=== PATIENT | female | born 1975 | race African-American/Black ===

== ENCOUNTER 2018-02-26 12:53 | Emergency (ER) | payer OTHER ==
--- NOTE | 2018-02-26 15:38 | RAD REPORT ---
EXAM DESCRIPTION: RAD - Elbow Right 3 View - 02/26/2018 2:07 pm CLINICAL HISTORY: Right elbow pain. FINDINGS: The examination is limited as the patient was unable to extend the elbow. The bones are osteoporotic. A joint effusion is present. Mild cortical regularity involves the radial head. This is equivocal for a fracture and should be correlated clinically.
--- NOTE | 2018-02-26 15:54 | EDPHYS ---
Physician Documentation [facility] Name: Tova Jensen Age: 42 yrs Sex: Female : 1975 Arrival Date: 02/26/2018 Time: 12:56 Bed 12 Private MD: Laron Brito B ED Physician Tyrel Donato HPI: 02/26 15:47 This 42 yrs old Black Female presents to ER via Ambulatory with complaints of Arm Pain. gs 15:47 The patient or guardian complains of injury. The complaints affect the right elbow. gs Onset: The symptoms/episode began/occurred 2 day(s) ago. Unable to obtain HPI due to patient's speech is incomprehensible, patient's inability to understand questions. 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 - Social history:: Smoking status: Patient/guardian denies using tobacco. - Ebola Screening: : No symptoms or risks identified at this time. ROS: 15:47 Unable to obtain ROS due to patient's inability to understand questions. gs Exam: 15:47 Eyes: Pupils equal round and reactive to light, extra-ocular motions intact. Lids and gs lashes normal. Conjunctiva and sclera are non-icteric and not injected. Cornea within normal limits. Periorbital areas with no swelling, redness, or edema. ENT: Nares patent. No nasal discharge, no septal abnormalities noted. Tympanic membranes are normal and external auditory canals are clear. Oropharynx with no redness, swelling, or masses, exudates, or evidence of obstruction, uvula midline. Mucous membranes moist. Neck: Trachea midline, no thyromegaly or masses palpated, and no cervical lymphadenopathy. Supple, full range of motion without nuchal rigidity, or vertebral point tenderness. No Meningismus. Cardiovascular: Regular rate and rhythm with a normal S1 and S2. No gallops, murmurs, or rubs. Normal PMI, no JVD. No pulse deficits. Respiratory: Lungs have equal breath sounds bilaterally, clear to auscultation and percussion. No rales, rhonchi or wheezes noted. No increased work of breathing, no retractions or nasal flaring. Abdomen/GI: Soft, non-tender, with normal bowel sounds. No distension or tympany. No guarding or rebound. No evidence of tenderness throughout. Back: No spinal tenderness. No costovertebral tenderness. Full range of motion. Skin: Warm, dry with normal turgor. Normal color with no rashes, no lesions, and no evidence of cellulitis. 15:47 Constitutional: The patient appears alert, awake. 15:47 Musculoskeletal/extremity: ROM: limited active range of motion, limited passive range of motion, limited active range of motion due to pain, limited passive range of motion due to pain, Joints: the right elbow displays swelling, tenderness. 15:47 Neuro: Exam negative for acute changes. Vital Signs: 13:11 BP 139 / 91; Pulse 105; Resp 18 S; Temp 97.8(TE); Pulse Ox 99% on R/A; Weight 104.33 kg aa5 (R); Height 5 ft. 0 in. (152.40 cm) (R); 13:11 Body Mass Index 44.92 (104.33 kg, 152.40 cm) aa5 Procedures: 15:47 Splinting: Splint applied to right elbow using Orthoglass splint, applied by tech. Examined by me, post splint application: neurovascular intact, 2+ distal pulses palpable, brisk capillary refill noted, Patient tolerated well. MDM: 13:21 Patient medically screened. gs 15:47 Differential diagnosis: dislocation, closed fracture, contusion. Data reviewed: vital gs signs, nurses notes. Response to treatment: the patient's symptoms have markedly improved after treatment, and as a result, I will discharge patient. 02/26 13:26 Order name: Elbow Right 3 View XRAY; Complete Time: 15:47 gs 02/26 15:47 Order name: Posterior Elbow Splint; Complete Time: 16:20 gs Administered Medications: No medications were administered Disposition: 02/26/18 15:53 Discharged to Home. Impression: Displaced fracture of head of right radius. - Condition is Stable. - Discharge Instructions: Elbow Fracture, Simple. - Medication Reconciliation Form, Thank You Letter, Antibiotic Education, Prescription Opioid Use form. - Follow up: Edinson Farah MD; When: 2 - 3 days; Reason: Re-evaluation by your physician. Signatures: Dispatcher [employer] Anne Alejandro RN RN aa5 Tyrel Donato MD MD gs Flor Brownlee RN RN kr2 Corrections: (The following items were deleted from the chart) 16:22 15:53 02/26/2018 15:53 Discharged to Home. Impression: Displaced fracture of head of kr2 right radius. Condition is Stable. Forms are Medication Reconciliation Form, Thank You Letter, Antibiotic Education, Prescription Opioid Use. Follow up: Edinson Farah; When: 2 - 3 days; Reason: Re-evaluation by your physician. gs
--- NOTE | 2018-02-26 15:54 | ER ---
Nurse's Notes [facility] Name: Tova Jensen Age: 42 yrs Sex: Female : 1975 Arrival Date: 02/26/2018 Time: 12:56 Bed 12 Private MD: Laron Brito B Diagnosis: Displaced fracture of head of right radius Presentation: 02/26 13:09 Presenting complaint: Pt's caregiver states "she started complaining about her right aa5 arm hurting since yesterday". Pt's caregiver states "I don't know if she fell because I had surgery yesterday so I was sleeping all day yesterday". Transition of care: patient was not received from another setting of care. Onset of symptoms was February 2018. Risk Assessment: Do you want to hurt yourself or someone else? Patient reports no desire to harm self or others. Initial Sepsis Screen: Does the patient meet any 2 criteria? No. Patient's initial sepsis screen is negative. Does the patient have a suspected source of infection? No. Patient's initial sepsis screen is negative. Care prior to arrival: None. 13:09 Method Of Arrival: Ambulatory aa5 13:09 Acuity: DARRELL 4 aa5 Triage Assessment: 13:35 General: Appears in no apparent distress. comfortable, well groomed, well developed, kr2 well nourished, Behavior is calm, cooperative. Pain: Complains of pain in right arm Unable to use pain scale. Does not appear to understand pain scale. Patient appears to be guarding, right arm, not wanting to move it. 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 - Social history:: Smoking status: Patient/guardian denies using tobacco. - Ebola Screening: : No symptoms or risks identified at this time. Screenin:34 Abuse screen: Denies threats or abuse. Denies injuries from another. Nutritional kr2 screening: No deficits noted. Tuberculosis screening: No symptoms or risk factors identified. Fall Risk None identified. Assessment: 13:37 General: Appears in no apparent distress. comfortable, well groomed, well developed, kr2 well nourished, Behavior is calm, cooperative, Patient has Down's Syndrome, unable to explain what happened or describe pain. Pain: Complains of pain in right arm Unable to use pain scale. Does not appear to understand pain scale. Neuro: Level of Consciousness is awake, alert, obeys commands, Oriented to person, place, situation. Cardiovascular: Capillary refill < 3 seconds in bilateral fingers Patient's skin is warm and dry. Respiratory: Airway is patent Respiratory effort is even, unlabored, Respiratory pattern is regular, symmetrical. Derm: Skin is intact, is healthy with good turgor, Skin is pink, warm \\T\\ dry. Musculoskeletal: Circulation, motion, and sensation intact. Patient does not want to move right arm, states it "hurts.". 14:30 Reassessment: Patient appears in no apparent distress at this time. Patient and/or kr2 family updated on plan of care and expected duration. Pain level reassessed. Patient is alert, oriented x 3, equal unlabored respirations, skin warm/dry/pink. 15:30 Reassessment: Patient appears in no apparent distress at this time. Patient and/or kr2 family updated on plan of care and expected duration. Pain level reassessed. Patient is alert, oriented x 3, equal unlabored respirations, skin warm/dry/pink. 16:20 Reassessment: Patient appears in no apparent distress at this time. Patient and/or kr2 family updated on plan of care and expected duration. Pain level reassessed. Patient is alert, oriented x 3, equal unlabored respirations, skin warm/dry/pink. Splint and sling in place as ordered. Pt tolerated well. Vital Signs: 13:11 BP 139 / 91; Pulse 105; Resp 18 S; Temp 97.8(TE); Pulse Ox 99% on R/A; Weight 104.33 kg aa5 (R); Height 5 ft. 0 in. (152.40 cm) (R); 13:11 Body Mass Index 44.92 (104.33 kg, 152.40 cm) aa5 ED Course: 12:56 Patient arrived in ED. mr 12:57 Laron Brito MD is Private Physician. mr 13:11 Triage completed. aa5 13:11 Arm band placed on. aa5 13:18 Tyrel Donato MD is Attending Physician. 13:23 Flor Brownlee, RN is Primary Nurse. kr2 13:37 Patient has correct armband on for positive identification. Call light in reach. Adult kr2 w/ patient. Door closed. Warm blanket given. Verbal reassurance given. 14:07 Elbow Right 3 View XRAY In Process Unspecified. EDAZ 15:49 Edinson Farah MD is Referral Physician. 16:17 Orthoglass splint: POSTERIOR ELBOW WITH SLING Sling applied to right arm. mh5 16:21 No provider procedures requiring assistance completed. Patient did not have IV access kr2 during this emergency room visit. Administered Medications: No medications were administered Outcome: 15:53 Discharge ordered by . 16:21 Discharged to home ambulatory. kr2 16:21 Condition: good 16:21 Discharge instructions given to family, Instructed on discharge instructions, follow up and referral plans. splint care Demonstrated understanding of instructions, follow-up care, splint care. 16:22 Patient left the ED. kr2 Signatures: Dispatcher [employer] [facility] Anu Ruano Audri, RN RN Anu Dias [facility] Tyrel Donato MD MD Flor Brownlee, RN RN kr2
[2018-02-26 18:24] VITALS: BP 139/91; TEMP 97.8; O2SAT 99
== END 2018-02-26 16:22 | disposition home or self-care (01) ==
LOC: ER 12:53
PROC: 2W38X1Z Immobilization of Right Upper Extremity using Splint (ICD-10-PCS; principal; 2018-02-26)
DX: S52.121A Displaced fracture of head of right radius, initial encounter for closed fracture (principal)
CPT/HCPCS: 99283

== ENCOUNTER 2018-11-17 14:13 | Emergency (ER) | payer OTHER ==
[2018-11-17] MEDS ORDERED: NA CHLORIDE 0.9% 0 ML ONE (15:27)
[2018-11-17] MEDS ORDERED: DIPHENHYDRAMINE 25 MG TAB/CAP ONE (15:49)
--- NOTE | 2018-11-17 15:53 | EDPHYS ---
Physician Documentation [facility] Name: Tova Jensen Age: 43 yrs Sex: Female : 1975 Arrival Date: 11/17/2018 Time: 14:16 Bed IW4 Private MD: ED Physician Umer Stuart HPI: 11/17 15:48 This 43 yrs old Black Female presents to ER via Ambulatory with complaints of Eye kb Swelling. 15:48 The patient is experiencing matting or discharge, redness, The patient sustained kb Unknown. to the left eye, caused by an unknown mechanism. Onset: The symptoms/episode began/occurred this morning. Duration: the symptoms are continuous. Aggravated by nothing. Alleviated by nothing. Associated signs and symptoms: Pertinent positives: None. Severity of symptoms: At their worst the symptoms were mild in the emergency department the symptoms are unchanged. The patient has not experienced similar symptoms in the past. The patient has not recently seen a physician. 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 - Social history:: Smoking status: Patient/guardian denies using tobacco. - Ebola Screening: : Patient negative for fever greater than or equal to 101.5 degrees Fahrenheit, and additional compatible Ebola Virus Disease symptoms Patient denies exposure to infectious person Patient denies travel to an Ebola-affected area in the 21 days before illness onset No symptoms or risks identified at this time. ROS: 15:46 Constitutional: Negative for fever, chills, and weight loss, ENT: Negative for injury, kb pain, and discharge, Neck: Negative for injury, pain, and swelling, Cardiovascular: Negative for chest pain, palpitations, and edema, Respiratory: Negative for shortness of breath, cough, wheezing, and pleuritic chest pain, Abdomen/GI: Negative for abdominal pain, nausea, vomiting, diarrhea, and constipation, MS/Extremity: Negative for injury and deformity, Neuro: Negative for headache, weakness, numbness, tingling, and seizure. 15:46 Eyes: Positive for discharge, redness, swelling, of the left upper eyelid and left lower eyelid. Exam: 15:46 Constitutional: This is a well developed, well nourished patient who is awake, alert, kb and in no acute distress. Head/Face: Normocephalic, atraumatic. ENT: Nares patent. No nasal discharge, no septal abnormalities noted. Tympanic membranes are normal and external auditory canals are clear. Oropharynx with no redness, swelling, or masses, exudates, or evidence of obstruction, uvula midline. Mucous membranes moist. Neck: Trachea midline, no thyromegaly or masses palpated, and no cervical lymphadenopathy. Supple, full range of motion without nuchal rigidity, or vertebral point tenderness. No Meningismus. Chest/axilla: Normal chest wall appearance and motion. Nontender with no deformity. No lesions are appreciated. Cardiovascular: Regular rate and rhythm with a normal S1 and S2. No gallops, murmurs, or rubs. Normal PMI, no JVD. No pulse deficits. Respiratory: Lungs have equal breath sounds bilaterally, clear to auscultation and percussion. No rales, rhonchi or wheezes noted. No increased work of breathing, no retractions or nasal flaring. Abdomen/GI: Soft, non-tender, with normal bowel sounds. No distension or tympany. No guarding or rebound. No evidence of tenderness throughout. Skin: Warm, dry with normal turgor. Normal color with no rashes, no lesions, and no evidence of cellulitis. MS/ Extremity: Pulses equal, no cyanosis. Neurovascular intact. Full, normal range of motion. Neuro: Awake and alert, GCS 15, oriented to person, place, time, and situation. Cranial nerves II-XII grossly intact. Motor strength 5/5 in all extremities. Sensory grossly intact. Cerebellar exam normal. Normal gait. 15:46 Eyes: Periorbital structures: erythema, that is mild, on the left upper eyelid and left lower eyelid, swelling, that is mild, on the left upper eyelid and left lower eyelid, Pupils: equal, round, and reactive to light and accomodation, Conjunctiva: injected, in the left eye. Vital Signs: 14:27 Pulse 90; Resp 19; Temp 97.8; Pulse Ox 100% on R/A; Pain 4/10; sg 14:30 BP 114 / 77; sg 16:08 BP 122 / 80; Pulse 88; Resp 18; Pulse Ox 100% on R/A; rv MDM: 14:47 Patient medically screened. kb 15:46 Data reviewed: vital signs, nurses notes. Data interpreted: Pulse oximetry: on room air kb is 100 %. Interpretation: normal. Counseling: I had a detailed discussion with the patient and/or guardian regarding: the historical points, exam findings, and any diagnostic results supporting the discharge/admit diagnosis, the need for outpatient follow up, a family practitioner, to return to the emergency department if symptoms worsen or persist or if there are any questions or concerns that arise at home. Administered Medications: 15: Drug: Benadryl 25 mg Route: PO; rv 16:08 Follow up: Response: No adverse reaction rv Disposition: 11/18 07:54 Co-signature as Attending Physician, Umer Stuart MD I agree with the assessment and [facility] plan of care. Disposition: 11/17/18 15:52 Discharged to Home. Impression: Conjunctivitis. - Condition is Stable. - Discharge Instructions: Bacterial Conjunctivitis, [id number]. - Prescriptions for Vigamox 0.5 % Ophthalmic Drops - instill 1 drop by OPHTHALMIC route every 8 hours for 7 days; 5 milliliter. - Medication Reconciliation Form, Thank You Letter, Antibiotic Education, Prescription Opioid Use form. - Follow up: Emergency Department; When: As needed; Reason: Worsening of condition. Follow up: Private Physician; When: 2 - 3 days; Reason: Recheck today's complaints, Continuance of care, Re-evaluation by your physician. Signatures: Ivy López FNP-C FNP-Edinson Moses RN RN sg Anderson, Corey, MD MD cha Vicente, Ronaldo RN RN rv Corrections: (The following items were deleted from the chart) 11/17 16:11 15:52 11/17/2018 15:52 Discharged to Home. Impression: Conjunctivitis. Condition is rv Stable. Forms are Medication Reconciliation Form, Thank You Letter, Antibiotic Education, Prescription Opioid Use. Follow up: Emergency Department; When: As needed; Reason: Worsening of condition. Follow up: Private Physician; When: 2 - 3 days; Reason: Recheck today's complaints, Continuance of care, Re-evaluation by your physician. kb
--- NOTE | 2018-11-17 15:53 | ER ---
Nurse's Notes [facility] Name: Tova Jensen Age: 43 yrs Sex: Female : 1975 Arrival Date: 11/17/2018 Time: 14:16 Bed IW4 Private MD: Diagnosis: Conjunctivitis Presentation: 11/17 14:27 Presenting complaint: Mother states: Left eye swelling and redness and itchiness with sg drainage that started this morning, was not a problem yesterday or lastnight. Transition of care: patient was not received from another setting of care. Onset of symptoms was November 17, 2018. Risk Assessment: Do you want to hurt yourself or someone else? Patient reports no desire to harm self or others. Initial Sepsis Screen: Does the patient meet any 2 criteria? No. Patient's initial sepsis screen is negative. Does the patient have a suspected source of infection? No. Patient's initial sepsis screen is negative. Care prior to arrival: None. 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 - Social history:: Smoking status: Patient/guardian denies using tobacco. - Ebola Screening: : Patient negative for fever greater than or equal to 101.5 degrees Fahrenheit, and additional compatible Ebola Virus Disease symptoms Patient denies exposure to infectious person Patient denies travel to an Ebola-affected area in the 21 days before illness onset No symptoms or risks identified at this time. Screenin:07 Abuse screen: Denies threats or abuse. Denies injuries from another. Nutritional rv screening: No deficits noted. Tuberculosis screening: No symptoms or risk factors identified. Fall Risk None identified. Assessment: 15:05 General: Appears in no apparent distress. comfortable, Behavior is calm, cooperative. rv General: Behavior is inappropriate for age. Pain: Denies pain. Neuro: Level of Consciousness is awake, alert, obeys commands, Oriented to person, place, time. Cardiovascular: Cardiovascular: Capillary refill < 3 seconds. Respiratory: Airway is patent. GI: No signs and/or symptoms were reported involving the gastrointestinal system. : No signs and/or symptoms were reported regarding the genitourinary system. EENT: Eyes redness on left eye. Derm: Skin is intact. Musculoskeletal: No signs and/or symptoms reported regarding the musculoskeletal system. Vital Signs: 14:27 Pulse 90; Resp 19; Temp 97.8; Pulse Ox 100% on R/A; Pain 4/10; sg 14:30 BP 114 / 77; sg 16:08 BP 122 / 80; Pulse 88; Resp 18; Pulse Ox 100% on R/A; rv ED Course: 14:16 Patient arrived in ED. ds1 14:18 Arm band placed on. sg 14:28 Triage completed. sg 14:47 Ivy López FNP-C is [facility]. kb 14:47 Umer Stuart MD is Attending Physician. kb 15:07 Patient has correct armband on for positive identification. Call light in reach. Adult rv w/ patient. Cardiac monitoring not applicable on this patient. 16:08 No provider procedures requiring assistance completed. Patient did not have IV access rv during this emergency room visit. Administered Medications: 15:24 Drug: Benadryl 25 mg Route: PO; rv 16:08 Follow up: Response: No adverse reaction rv Outcome: 15:52 Discharge ordered by MD. kb 16:09 Discharged to home ambulatory. rv 16:09 Condition: good 16:09 Discharge instructions given to family, Instructed on discharge instructions, follow up and referral plans. medication usage, Demonstrated understanding of instructions, follow-up care, medications, Prescriptions given X 1. 16:11 Patient left the ED. rv Signatures: Ivy López FNP-C FNP-Ckb Gay, Steven RN OWEN Meghana Cornejo ds1 Danis Allred RN RN rv
[2018-11-17 16:26] VITALS: TEMP 97.8; O2SAT 100
[2018-11-17 16:28] VITALS: BP 122/80
== END 2018-11-17 16:11 | disposition home or self-care (01) ==
LOC: ER 14:13
DX: H10.9 Unspecified conjunctivitis (principal); Q90.9 Down syndrome, unspecified
CPT/HCPCS: 99283; J7030

== ENCOUNTER 2019-11-22 08:41 | Emergency (ER) | payer OTHER ==
--- OUTSIDE RECORDS SUMMARY | 2019-11-22 08:43 | XMS REPORT ---
:1975 [facility] Address [address] [place] [address] [address] [place] [address] Care Team Providers Name Role Phone Unavailable Unavailable Unavailable Problems This patient has no known problems. Allergies, Adverse Reactions, Alerts This patient has no known allergies or adverse reactions. Medications This patient has no known medications.
--- OUTSIDE RECORDS SUMMARY | 2019-11-22 08:45 | XMS REPORT | Summary of Care ---
:1975 Author Organization [facility] - Health Address [address] [place] [address] Care Team Providers Name Role Phone Pcp, Patient Does Not Have A Primary Care Provider Encounter Details Date Type Department Care Team Description 11/18/2019 Orders Only [facility] Doctor Unassigned, No [address] [facility] [place] [address] [address] [place] [address] Allergies No Known Allergiesdocumented as of this encounter (statuses as of 11/18/2019) Medications Medication Sig Dispensed Refills Start Date End Date Status Levothyroxine 112 mcg TAKE 1 TABLET BY 6 02/21/2019 Active capsule MOUTH EVERY MORNING ON AN EMPTY STOMACH venlafaxine XR 75 mg 24 TAKE 2 CAPSULES 0 03/07/2019 Active hr capsule BY MOUTH EVERY DAY risperiDONE 3 mg tablet Take 3 mg by 0 04/04/2019 Active mouth 2 (two) times daily. montelukast 10 mg Take 10 mg by 10 02/21/2019 Active tablet mouth daily. lithium carbonate CR TAKE 2 TABLETS BY 0 04/04/2019 Active 300 mg SR tablet MOUTH AT BEDTIME ergocalciferol, vitamin TAKE 1 CAPSULE BY 3 03/21/2019 Active d2, 50,000 unit capsule MOUTH EVERY 2 WEEKS donepezil 10 mg tablet Take 10 mg by 3 03/21/2019 Active mouth 2 (two) times daily. famotidine 20 mg tablet Take 20 mg by 0 Active mouth 2 (two) times daily. donepezil 5 mg tablet Take 5 mg by 0 Active mouth at bedtime. foLIC acid 1 mg tablet Take 1 mg by 0 Active mouth daily. docusate (DOC-Q-LACE) Take 100 mg by 0 Active 100 mg capsule mouth daily. levETIRAcetam 500 mg Take by mouth. 0 Active TbSu FLUoxetine 20 mg Take 20 mg by 0 Active capsule mouth daily. zolpidem 5 mg tablet Take 5 mg by 0 Active mouth at bedtime as needed for Insomnia. imipramine 25 mg tablet Take 25 mg by 0 Active mouth at bedtime. calcium Take 650 mg by 0 Active carbonate/vitamin D2 mouth daily. ([id number] ORAL) alendronate 70 mg Take 1 tablet by 12 tablet 0 10/16/2019 Active tabletIndications: mouth weekly. Osteoporosis, postmenopausal documented as of this encounter (statuses as of 11/18/2019) Active Problems Not on filedocumented as of this encounter (statuses as of 11/18/2019) Social History Tobacco Use Types Packs/Day Years Used Date Never Smoker Smokeless Tobacco: Never Used Alcohol Use Drinks/Week oz/Week Comments Never Alcohol Habits Answer Date Recorded How often do you have a drink containing alcohol? Never 04/16/2019 How many drinks containing alcohol do you have on a typical Not asked day when you are drinking? How often do you have six or more drinks on one occasion? Not asked Sex Assigned at Date Recorded Not on file Job Start Date Occupation Industry Not on file Not on file Not on file Travel History Travel Start Travel End No recent travel history available. documented as of this encounter Last Filed Vital Signs Not on filedocumented in this encounter Plan of Treatment Date Type Specialty Care Team Description 11/18/2019 Office Visit Endocrinology Diabetes & BishopAdam MD Arrived Metabolism 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 Medicare [place] 2 [id number] [place] [id number] [facility] MEDICAID OF xxxxxxxxx 2019-Presen [phone] [address] [place] t 0 [id number] [place] [address] documented as of this encounter
--- OUTSIDE RECORDS SUMMARY | 2019-11-22 08:45 | XMS REPORT | Summary of Care ---
:1975 Author Organization [facility] Address [address] [place] [address] Care Team Providers Name Role Phone Pcp, Patient Does Not Have A Primary Care Provider Reason for Visit Reason Comments LAB Encounter Details Date Type Department Care Team Description 11/18/2019 Power Plant Manager Visit [facility] Adam Bishop MD [address] [place] [address] Osteoporosis, postmenopausal; Professional Office 2, Adc Lab Vitamin D deficiency; Building Phlebotomy Primary hypothyroidism Lab Professional Office Building [address] [place] [address] , [address] [place] [address] Allergies No Known Allergiesdocumented as of this [...] by 0 Active carbonate/vitamin D2 mouth daily. ([id number] ORAL) alendronate 70 mg Take 1 tablet [...] Treatment Date Type Specialty Care Team Description 05/18/2020 Office Visit Endocrinology Diabetes & BishopAdam MD Metabolism [address] [place] [address] [phone] Health Maintenance Due Date Last Done Comments DTaP,Tdap,and Td Vaccines (1 - 1987 Tdap) PAP SMEAR 1997 Breast Cancer Screening 2016 (MAMMOGRAM) INFLUENZA VACCINE (#1) 2019 PNEUMOCOCCAL 0-64 YEARS COMBINED Aged Out No longer eligible based on SERIES patient's age to complete this topic documented as of this encounter Results Not on filedocumented in this encounter Visit Diagnoses Diagnosis Osteoporosis, postmenopausal Senile osteoporosis Vitamin D deficiency Unspecified vitamin D deficiency Primary hypothyroidism Unspecified hypothyroidism documented in this encounter Insurance Payer Benefit Plan / Subscriber ID Effective Dates Phone Address Type Group MEDICARE MEDICARE PART xxxxxxxxxxx 1996-Geovanni [phone] Medicare A & B nt [id number] [place] [address] [facility] MEDICAID OF xxxxxxxxx 2019-Mando [phone] [address] Medicaid [place] t 0 [id number] [place] [address] documented as of this encounter
--- OUTSIDE RECORDS SUMMARY | 2019-11-22 08:46 | XMS REPORT | Summary of Care ---
:1975 Author Organization [facility] Address [address] [place] [address] Care Team Providers Name Role Phone Pcp, Patient Does Not Have A Primary Care Provider Reason for Referral Radiology Services (Routine) Status Reason Specialty Diagnoses / Referred By Referred To Procedures Contact Contact New Request Diagnostic Diagnoses Osteoporosis, postmenopausal Adam Bishop, Radiology Procedures DEXA AXIAL (HIP AND SPINE) [address] [place] [phone] Reason for Visit Reason Comments Follow-up osteo Encounter Details Date Type Department Care Team Description 11/18/2019 Office Visit [facility] Adam Bishop MD Osteoporosis, postmenopausal (Primary Dx); Endocrinology- [address] [place] [address] Primary hypothyroidism; [facility] Vitamin D deficiency Professional Office [place], [place] Building [id number] [place] [address] [address]. [address] [place], [place] (Fax) [phone] Allergies No Known Allergiesdocumented as of this encounter (statuses as of 11/18/2019) Medications Medication Sig Dispensed Refills Start Date End Date Status Levothyroxine 112 TAKE 1 TABLET 6 02/21/2019 Active mcg capsule BY MOUTH EVERY MORNING ON AN EMPTY STOMACH venlafaxine XR 75 TAKE 2 0 03/07/2019 Active mg 24 hr capsule CAPSULES BY MOUTH EVERY DAY risperiDONE 3 mg Take 3 mg by 0 04/04/2019 Active tablet mouth 2 (two) times daily. montelukast 10 mg Take 10 mg by 10 02/21/2019 Active tablet mouth daily. lithium carbonate TAKE 2 0 04/04/2019 Active CR 300 mg SR tablet TABLETS BY MOUTH AT BEDTIME ergocalciferol, TAKE 1 3 03/21/2019 Active vitamin d2, 50,000 CAPSULE BY unit capsule MOUTH EVERY 2 WEEKS donepezil 10 mg Take 10 mg by 3 03/21/2019 Active tablet mouth 2 (two) times daily. famotidine 20 mg Take 20 mg by 0 Active tablet mouth 2 (two) times daily. donepezil 5 mg Take 5 mg by 0 Active tablet mouth at bedtime. foLIC acid 1 mg Take 1 mg by 0 Active tablet mouth daily. docusate Take 100 mg 0 Active (DOC-Q-LACE) 100 mg by mouth capsule daily. levETIRAcetam 500 Take by 0 Active mg TbSu mouth. FLUoxetine 20 mg Take 20 mg by 0 Active capsule mouth daily. zolpidem 5 mg Take 5 mg by 0 Active tablet mouth at bedtime as needed for Insomnia. imipramine 25 mg Take 25 mg by 0 Active tablet mouth at bedtime. calcium Take 650 mg 0 Active carbonate/vitamin by mouth D2 ([id number] daily. ORAL) alendronate 70 mg Take 1 tablet 12 tablet 2 11/18/2019 Active tabletIndications: by mouth Osteoporosis, weekly. postmenopausal alendronate 70 mg Take 1 tablet 12 tablet 0 10/16/2019 Discontinued tabletIndications: by mouth 0 (Reorder) Osteoporosis, weekly. postmenopausal documented as of this encounter (statuses [...] of this encounter Last Filed Vital Signs Vital Sign Reading Time Taken Comments Blood Pressure 118/81 11/18/2019 10:19 AM [facility] Pulse 90 11/18/2019 10:19 AM [facility] Temperature - - Respiratory Rate 18 11/18/2019 10:19 AM [facility] Oxygen Saturation - - Inhaled Oxygen Concentration - - Weight 101.3 kg (223 lb 6.4 oz) 11/18/2019 10:19 AM [facility] Height 121.9 cm (4') 11/18/2019 10:19 AM [facility] Body Mass Index 68.17 11/18/2019 10:19 AM [facility] documented in this encounter Patient Instructions Patient InstructionsAdam Bishop MD - 11/18/2019 10:30 AM CSTObtain bone scan at the end of March and come back to follow up visit in 04/2020 Continue current thyroid medication, alendronate and vitamin D medication [facility] documented in this encounter Progress Notes Adam Bishop MD - 11/18/2019 10:30 AM CST CC follow up for osteoporosis HPI Patient is a 44 year old Black or female here today for evaluation and management of osteoporosis. Diagnosed in 02/2018. Patient's osteoporosis is secondary to post menopause. Patient has Down's syndrome. Patient has no history of fracture in past . Patient is not a smoker. Patient ambulates independently. Patient was referred here in 03/2019 and started on alendronate 70mg weekly for osteoporosis. Reports compliance and tolerated well Last bone mineral density in 02/2018 showed T score -1.6 in left femoral neck and -2.6 vertebrae. Patient currently on OTC calcium 650 mg daily and ergocalciferol 50,000 units Q2 weeks HISTORY Past Medical History: Diagnosis Date Down's syndrome Osteoporosis Psych & behavrl factors assoc w disord or dis classd elswhr Thyroid disease Past Surgical History: Procedure Laterality Date VALVE REPLACEMENT Family History Problem Relation Age of Onset Diabetes Paternal Grandmother Hypertension Paternal Grandmother Diabetes Paternal Grandfather Hypertension Paternal Grandfather Social History Socioeconomic History Marital status: Single Spouse name: Not on file Number of children: Not on file Years of education: Not on file Highest education level: Not on file Occupational History Not on file Social Needs Financial resource strain: Not on file Food insecurity: Worry: Not on file Inability: Not on file Transportation needs: Medical: Not on file Non-medical: Not on file Tobacco Use Smoking status: Never Smoker Smokeless tobacco: Never Used Substance and Sexual Activity Alcohol use: Never Frequency: Never Drug use: Not on file Sexual activity: Not on file Lifestyle Physical activity: Days per week: Not on file Minutes per session: Not on file Stress: Not on file Relationships Social connections: Talks on phone: Not on file Gets together: Not on file Attends christianity service: Not on file Active member of club or organization: Not on file Attends meetings of clubs or organizations: Not on file Relationship status: Not on file Intimate partner violence: Fear of current or ex partner: Not on file Emotionally abused: Not on file Physically abused: Not on file Forced sexual activity: Not on file Other Topics Concern Not on file Social History Narrative Not on file REVIEW OF SYSTEMS Information was limited given patient's down's status Constitutional: denies weight change, denies fatigue and hair loss Eyes: denies blurry vision, denies diplopia and denies pain. Neck: denies pain, denies swollen glands Cardiovascular: denies chest pain , denies irregular pulse and denies palpitations. Respiratory: denies dyspnea on exertion and denies shortness of breath. Gastrointestinal: denies abdominal pain, denies constipation and denies diarrhea. Genitourinary: denies burning and denies dysuria. Musculoskeletal: denies back pain, denies muscle pain and denies weakness. Skin: denies dry skin and denies hair changes. Neuro: denies numbness , denies tingling and denies tremor. Psych: negative. Endocrine: denies goiter, denies hair loss, denies intolerance to cold, denies intolerance to heat, denies polydipsia, denies polyphagia and denies polyuria. PHYSICAL EXAM BP 118/81 (BP Location: Right arm, Patient Position: Sitting, BP CUFF SIZE: Adult Large) | Pulse 90 | Resp 18 | Ht 4' (1.219 m) | Wt 223 lb 6.4 oz ( 101.3 kg) | BMI 68.17 kg/m General: alert, oriented times three, no apparent distress, down's appearing Neck: neck supple, no adenopathy, no goiter Thyroid: normal size and soft in consistency to palpation, no palpable thyroid nodule, no bruits. Lungs: good diaphragmatic excursion, lungs clear to auscultation bilaterally. Heart: regular rate and rhythm, no murmurs, gallops or rubs. Abdomen: abdomen soft, non-tender, normal active bowel sounds Extremities/Musculoskeletal: no cyanosis, no edema Neuro:no tremor . spine: no kyphoscoliosis. Outside lab 01/2019 EGFR=87 Calcium=8.4 Ref. Range 04/16/2019 15:04 CALCIUM Latest Ref Range: 8.6 - 10.6 mg/dL 9.1 TSH Latest Ref Range: 0.45 - 4.70 mIU/L 0.02 (L) FREE T4 Latest Ref Range: 0.78 - 2.20 ng/dL 1.28 VIT D 25OH Latest Ref Range: 25 - 80 ng/mL 62 PTH-CA INT Unknown COMMENT ONLY PTH-INTACT Latest Ref Range: 12.0 - 88.0 pg/mL 38.2 ASSESSMENT/PLAN 1. Osteoporosis, postmenopausal Risk factor POI and vit D deficiency Plan Continue alendronate 70mg weekly - VITAMIN D, 25-OH; Future - COMP. METABOLIC PANEL (89868); Future Repeat DEXA in 03/2020 - DEXA AXIAL (HIP AND SPINE); Future 2. Primary hypothyroidism Patient is euthyroid in exam Previous low TSh may 2/2 side effect of donepezil /lithium Plan continue levothyroxine 112mcg daily - THYROID STIMULATING HORMONE; Future - T4 FREE; Future 3. Vitamin D deficiency Last vit D was at target plan - VITAMIN D, 25-OH; Future Continue ergocalciferol 50,000 units q2 weeks documented in this encounter Plan of Treatment Date Type Specialty Care Team Description 05/18/2020 Office Visit Endocrinology Diabetes & Adam Bihsop MD Metabolism [address] [place] [address] [phone] Name Type Priority Associated Diagnoses Order Schedule DEXA AXIAL (HIP AND IMAGING Routine Osteoporosis, postmenopausal Expected: 04/21/2020, SPINE) Expires: 11/18/2020 Health Maintenance Due Date Last Done Comments DTaP,Tdap,and Td Vaccines (1 - 1987 Tdap) PAP SMEAR 1997 Breast Cancer Screening 2016 (MAMMOGRAM) INFLUENZA VACCINE (#1) 2019 PNEUMOCOCCAL 0-64 YEARS COMBINED Aged Out No longer eligible based on SERIES patient's age to complete this topic documented as of this encounter Results T4 FREE (11/18/2019 11:29 AM [facility]) FREE T4 2.11 0.78 - 2.20 ng/dL [facility] Specimen Blood Performing Organization Address City/[facility]/Zipcode Phone Number [facility] CLIA: [id number], [address] [place] [address] THYROID STIMULATING HORMONE (11/18/2019 11:29 AM [facility]) TSH 0.08 (L) 0.45 - 4.70 mIU/L [facility] Specimen Blood Performing Organization Address City[facility] Phone Number [facility] CLIA: [id number], [address] [place] [address] COMP. METABOLIC PANEL (52288) (11/18/2019 11:29 AM [facility]) NA 139 135 - 145 mmol/L [facility] K 4.0 3.5 - 5.0 mmol/L [facility] CL 103 98 - 108 mmol/L [facility] CO2 TOTAL 29 23 - 31 mmol/L [facility] AGAP 7 2 - 16 [facility] BUN 10 7 - 23 mg/dL [facility] GLUCOSE 108 70 - 110 mg/dL [facility] CREATININE 0.85 0.50 - 1.04 [facility] mg/dL [facility] TOTAL BILI 0.3 0.1 - 1.1 mg/dL [facility] CALCIUM 8.9 8.6 - 10.6 mg/dL [facility] T PROTEIN 7.4 6.3 - 8.2 g/dL [facility] ALBUMIN 3.9 3.5 - 5.0 g/dL [facility] ALK PHOS 65 34 - 122 U/L [facility] ALTv 16 5 - 35 U/L [facility] AST(SGOT) 24 13 - 40 U/L [facility] eGFR Calculation 73.0 mL/min/1.73m2 [facility] (Non-) [facility] eGFR Calculation 88.5 mL/min/1.73m2 [facility] () [facility] Specimen Blood Narrative Performed At Association of Glomerular Filtration Rate (GFR) [facility] and Staging of Kidney Disease* + + +- + | GFR (mL/min/1.73 m2) | With Kidney Damage | Without Kidney Damage + + +- + | >90 | Stage one | Normal + + +- + | 60-89 | Stage two | Decreased GFR + + +- + | 30-59 | Stage three | Stage three + + +- + | 15-29 | Stage four | Stage four + + +- + | <15 (or dialysis) | Stage five | Stage five + + +- + *Each stage assumes the associated GFR level has been in effect for at least three months. Stages 1 to 5, with or without kidney disease, indicate chronic kidney disease. Notes: Determination of stages one and two (with eGFR >59mL/min/1.73 m2) requires estimation of kidney damage for at least three months as defined by structural or functional abnormalities of the kidney, manifested by either: Pathological abnormalities or Markers of kidney damage (including abnormalities in the composition of the blood or urine or abnormalities in imaging tests). Performing Organization Address City/State/Zipcode Phone Number [facility] CLIA: [id number], [address] [place] [address] [facility] VITAMIN D, 25-OH (11/18/2019 11:29 AM [facility]) VIT D 25OH 40 25 - 80 ng/mL [facility] Specimen Blood Narrative Performed At Deficiency: <20 ng/mL [facility] Insufficiency: 20-24 ng/mL Optimal: 25-80 ng/mL Performing Organization Address City/State/Zipcode Phone Number [facility] CLIA: [id number], [address] [place], [place] [address] [phone] [facility] documented in this encounter Visit Diagnoses Diagnosis Osteoporosis, postmenopausal - Primary Senile osteoporosis Primary hypothyroidism Unspecified hypothyroidism Vitamin D deficiency Unspecified vitamin D deficiency documented in this encounter Insurance Payer Benefit Plan / Subscriber ID Effective Dates Phone Address Type Group MEDICARE MEDICARE PART xxxxxxxxxxx 1996-Prese [phone] [address] Medicare A & B 2 [id number] [place] [id number] [facility] MEDICAID OF xxxxxxxxx 2019-Presen [phone] [address] Medicaid [facility] [id number] [place] [address] documented as of this encounter"
--- OUTSIDE RECORDS SUMMARY | 2019-11-22 08:46 | XMS REPORT | Summary of Care ---
:1975 Author Organization [facility] Address [address] [place] [id number] Care Team Providers Name Role Phone Pcp, Patient Does Not Have A Primary Care Provider Reason for Referral Radiology Services (Routine) Status Reason Specialty Diagnoses / Referred By Referred To Procedures Contact Contact New Request Diagnostic Diagnoses Osteoporosis, postmenopausal Adam Bishop, Radiology Procedures DEXA AXIAL (HIP AND SPINE) [address] [place] [id number] Reason for Visit Reason Comments Follow-up osteo Encounter Details Date Type Department Care Team Description 11/18/2019 Office Visit [facility] Adam Bishop MD Osteoporosis, postmenopausal (Primary Dx); Endocrinology- [address] [place] [address] Primary hypothyroidism; [facility] Vitamin D deficiency Professional Office [place], [place] Building [id number] [place] [address] Dr. Beltran [address] [place], [place] (Fax) [phone] Allergies No Known Allergiesdocumented [...] mg 0 Active carbonate/vitamin by mouth D2 ([id number] daily. ORAL) alendronate 70 mg Take 1 [...] Comments Blood Pressure 118/81 11/18/2019 10:19 AM DECORATING KILN OPERATOR Pulse 90 11/18/2019 10:19 AM DECORATING KILN OPERATOR Temperature - - Respiratory Rate 18 11/18/2019 10:19 AM DECORATING KILN OPERATOR Oxygen Saturation - - Inhaled Oxygen Concentration - - Weight 101.3 kg (223 lb 6.4 oz) 11/18/2019 10:19 AM DECORATING KILN OPERATOR Height 121.9 cm (4') 11/18/2019 10:19 AM DECORATING KILN OPERATOR Body Mass Index 68.17 11/18/2019 10:19 AM DECORATING KILN OPERATOR documented in this encounter Patient Instructions Patient InstructionsAdam Bishop MD - 11/18/2019 10:30 AM CSTObtain bone scan at the end of March and come back to follow up visit in 04/2020 Continue current thyroid medication, alendronate and vitamin D medication RATING KILN OPERATOR documented in this encounter Progress Notes Adam [...] file Gets together: Not on file Attends holiness service: Not on file Active member of [...] D, 25-OH; Future - COMP. METABOLIC PANEL (67888); Future Repeat DEXA in 03/2020 - DEXA [...] 05/18/2020 Office Visit Endocrinology Diabetes & Adam Bishop MD Metabolism [address] [place] [address] [phone] Name Type Priority Associated Diagnoses Order Schedule [...] encounter Results T4 FREE (11/18/2019 11:29 AM DECORATING KILN OPERATOR) FREE T4 2.11 0.78 - 2.20 ng/dL [facility] Specimen Blood Performing Organization Address City/[facility]/Zipcode Phone Number [facility] CLIA: [id number], [address] [place] [address] THYROID STIMULATING HORMONE (11/18/2019 11:29 AM DECORATING KILN OPERATOR) TSH 0.08 (L) 0.45 - 4.70 mIU/L [facility] Specimen Blood Performing Organization Address City[facility] Phone Number [facility] CLIA: [id number], [address] [place] [address] COMP. METABOLIC PANEL (49909) (11/18/2019 11:29 AM DECORATING KILN OPERATOR) NA 139 135 - 145 mmol/L [facility] K 4.0 3.5 - 5.0 mmol/L [facility] CL 103 98 - 108 mmol/L [facility] CO2 TOTAL 29 23 - 31 mmol/L [facility] AGAP 7 2 - 16 [facility] BUN 10 7 - 23 mg/dL [facility] GLUCOSE 108 70 - 110 mg/dL [facility] CREATININE 0.85 0.50 - 1.04 [facility] mg/dL [facility] TOTAL BILI 0.3 0.1 - 1.1 mg/dL [facility] CALCIUM 8.9 8.6 - 10.6 mg/dL [facility] T PROTEIN 7.4 6.3 - 8.2 g/dL [facility] ALBUMIN 3.9 3.5 - 5.0 g/dL [facility] ALK PHOS 65 34 - 122 U/L [facility] ALTv 16 5 - 35 U/L [facility] AST(SGOT) 24 13 - 40 U/L [facility] eGFR Calculation 73.0 mL/min/1.73m2 [facility] (Non-) [facility] eGFR Calculation 88.5 mL/min/1.73m2 [facility] () [facility] Specimen Blood Narrative Performed At Association of Glomerular Filtration Rate (GFR) [facility] and Staging of Kidney Disease* [...] tests). Performing Organization Address City/State/Zipcode Phone Number [facility] CLIA: [id number], [address] [place] [address] [facility] VITAMIN D, 25-OH (11/18/2019 11:29 AM DECORATING KILN OPERATOR) VIT D 25OH 40 25 - 80 ng/mL [facility] Specimen Blood Narrative Performed At Deficiency: <20 ng/mL [facility] Insufficiency: 20-24 ng/mL Optimal: 25-80 ng/mL Performing Organization Address City/State/Zipcode Phone Number [facility] CLIA: [id number], [address] [place], [place] [address] [phone] [facility] documented in this encounter Visit Diagnoses Diagnosis Osteoporosis, postmenopausal - Primary Senile osteoporosis Primary hypothyroidism Unspecified hypothyroidism Vitamin D deficiency Unspecified vitamin D deficiency documented in this encounter Insurance Payer Benefit Plan / Subscriber ID Effective Dates Phone Address Type Group MEDICARE MEDICARE PART xxxxxxxxxxx 1996-Prese [phone] Medicare A & B 2 [id number] [place] [id number] [facility] MEDICAID OF xxxxxxxxx 2019-Presen [phone] [address] Medicaid [facility] [id number] [place] [address] documented as of this encounter"
--- NOTE | 2019-11-22 10:11 | EDPHYS ---
Physician Documentation [facility] Name: Tova Jensen Age: 44 yrs Sex: Female : 1975 Arrival Date: 11/22/2019 Time: 08:47 Bed 16 Private MD: Laron Brito B ED Physician Umer Stuart HPI: 09:26 This 44 yrs old Black Female presents to ER via Wheelchair with complaints of Fall pm1 Injury. 09:26 Details of fall: The patient fell from an upright position, while walking. Onset: The pm1 symptoms/episode began/occurred just prior to arrival. Associated injuries: The patient sustained left knee. Severity of symptoms: in the emergency department the symptoms are unchanged. Patient was walking into the hospital and then tripped on the front door mat. Patient landed on her left knee. No complaints of pain to any other body part. 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 - Social history:: Smoking status: Patient denies any tobacco usage or history of. ROS: 09:26 Constitutional: Negative for fever, chills, and weight loss, Neck: Negative for injury, pm1 pain, and swelling, Cardiovascular: Negative for chest pain, palpitations, and edema, Respiratory: Negative for shortness of breath, cough, wheezing, and pleuritic chest pain, Abdomen/GI: Negative for abdominal pain, nausea, vomiting, diarrhea, and constipation. 09:26 Back: Negative for injury and pain. 09:26 Skin: Negative for injury, rash, and discoloration, Neuro: Negative for headache, weakness, numbness, tingling, and seizure. 09:26 MS/extremity: Positive for pain, of the left knee, Negative for decreased range of motion, deformity. 09:26 All other systems are negative. pm1 Exam: 09:26 Constitutional: This is a well developed, well nourished patient who is awake, alert, pm1 and in no acute distress. Head/Face: Normocephalic, atraumatic. Neck: Trachea midline, no thyromegaly or masses palpated, and no cervical lymphadenopathy. Supple, full range of motion without nuchal rigidity, or vertebral point tenderness. No Meningismus. Chest/axilla: Normal chest wall appearance and motion. Nontender with no deformity. No lesions are appreciated. Cardiovascular: Regular rate and rhythm with a normal S1 and S2. No gallops, murmurs, or rubs. No pulse deficits. Respiratory: Lungs have equal breath sounds bilaterally, clear to auscultation and percussion. No rales, rhonchi or wheezes noted. No increased work of breathing, no retractions or nasal flaring. Back: No spinal tenderness. No costovertebral tenderness. Full range of motion. Skin: Warm, dry with normal turgor. Normal color with no rashes, no lesions, and no evidence of cellulitis. MS/ Extremity: Pulses equal, no cyanosis. Neurovascular intact. Full, normal range of motion. Patient able to stand anpply full weight on left knee 09:26 Neuro: Exam negative for acute changes, Motor: is normal, moves all fours. Vital Signs: 08:59 BP 102 / 79; Pulse 78; Resp 16; Temp 97.0; Pulse Ox 100% on R/A; Weight 103.42 kg; iw Height 5 ft. (152.40 cm); 09:55 BP 110 / 82; Pulse 81; Resp 16 S; Pulse Ox 100% on R/A; ca1 08:59 Body Mass Index 44.53 (103.42 kg, 152.40 cm) iw MDM: 09:03 Patient medically screened. 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 Is fine with an ice pm1 pack for her knee. 09:26 Data reviewed: vital signs. Data interpreted: Pulse oximetry: on room air is 100 %. pm1 Interpretation: normal. 10:10 Counseling: I had a detailed discussion with the patient and/or guardian regarding: the pm1 historical points, exam findings, and any diagnostic results supporting the discharge/admit diagnosis, radiology results, the need for outpatient follow up, a orthopedic surgeon, to return to the emergency department if symptoms worsen or persist or if there are any questions or concerns that arise at home. 09:08 Order name: Knee Left 3 View XRAY pm1 09:09 Order name: Ice pack; Complete Time: 09:13 pm1 10:10 Order name: Alexis wrap-joint; Complete Time: 10:17 pm1 Administered Medications: No medications were administered Disposition: 11/22/19 10:11 Discharged to Home. Impression: Contusion of left knee. - Condition is Stable. - Discharge Instructions: Contusion, Knee Pain. - Medication Reconciliation Form, Thank You Letter, Antibiotic Education, Prescription Opioid Use form. - Follow up: Emergency Department; When: As needed; Reason: Worsening of condition. Follow up: Private Physician; When: 2 - 3 days; Reason: Recheck today's complaints, Continuance of care, Re-evaluation by your physician. - Problem is new. - Symptoms have improved. Addendum: 11/23/2019 17:53 Co-signature as Attending Physician, Umer Stuart MD I agree with the assessment and c chacon plan of care. Signatures: Dispatcher [employer] EDUmer Cates MD MD cha Williams, Irene, RN RN iw Cristobal Workman, BIANCA TRACK PRODUCTION ENGINEER pm1 Fiona Lopes RN RN ca1 Corrections: (The following items were deleted from the chart) 10: 10:11 11/22/2019 10:11 Discharged to Home. Impression: Contusion of left knee. ca1 Condition is Stable. Forms are Medication Reconciliation Form, Thank You Letter, Antibiotic Education, Prescription Opioid Use. Follow up: Emergency Department; When: As needed; Reason: Worsening of condition. Follow up: Private Physician; When: 2 - 3 days; Reason: Recheck today's complaints, Continuance of care, Re-evaluation by your physician. Problem is new. Symptoms have improved. pm1
--- NOTE | 2019-11-22 10:11 | ER ---
Nurse's Notes [facility] Name: Tova Jensen Age: 44 yrs Sex: Female : 1975 Arrival Date: 11/22/2019 Time: 08:47 Bed 16 Private MD: Laron Brito B Diagnosis: Contusion of left knee Presentation: 08:58 Chief complaint: Parent and/or Guardian states: pt was walking and tripped over a rug iw in front lobby, now c/o left knee pain. Care prior to arrival: None. 08:58 Acuity: DARRELL 4 iw 08:58 Method Of Arrival: Wheelchair iw 09:54 Coronavirus screen: The patient has NOT traveled to [place] in the past 14 days. The ca1 patient has NOT had contact with known and/or suspected case of Coronavirus. Ebola Screen: Patient negative for fever greater than or equal to 101.5 degrees Fahrenheit, and additional compatible Ebola Virus Disease symptoms Patient denies exposure to infectious person. Patient denies travel to an Ebola-affected area in the 21 days before illness onset. No symptoms or risks identified at this time. Initial Sepsis Screen: Does the patient meet any 2 criteria? No. Patient's initial sepsis screen is negative. Does the patient have a suspected source of infection? No. Patient's initial sepsis screen is negative. Risk Assessment: Do you want to hurt yourself or someone else? Patient reports no desire to harm self or others. Onset of symptoms was November 22, 2019. 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 - Social history:: Smoking status: Patient denies any tobacco usage or history of. Screenin:55 Abuse screen: Denies threats or abuse. Denies injuries from another. Nutritional ca1 screening: No deficits noted. Tuberculosis screening: No symptoms or risk factors identified. Fall Risk None identified. Assessment: 09:55 General: Appears in no apparent distress. comfortable, Behavior is calm, cooperative, ca1 appropriate for age. Pain: Complains of pain in left knee. Neuro: Level of Consciousness is awake, alert, obeys commands, Oriented to person, place, time, situation, Appropriate for age. Cardiovascular: Heart tones S1 S2 present Capillary refill < 3 seconds Patient's skin is warm and dry. Respiratory: Airway is patent Respiratory effort is even, unlabored, Respiratory pattern is regular, symmetrical. Derm: Skin is intact, is healthy with good turgor, Skin is pink, warm \T\ dry. Musculoskeletal: Circulation, motion, and sensation intact. Capillary refill < 3 seconds, Range of motion: intact in all extremities. 10:15 Reassessment: Patient appears in no apparent distress at this time. Patient is alert, ca1 oriented x 3, equal unlabored respirations, skin warm/dry/pink. Vital Signs: 08:59 BP 102 / 79; Pulse 78; Resp 16; Temp 97.0; Pulse Ox 100% on R/A; Weight 103.42 kg; iw Height 5 ft. (152.40 cm); 09:55 BP 110 / 82; Pulse 81; Resp 16 S; Pulse Ox 100% on R/A; ca1 08:59 Body Mass Index 44.53 (103.42 kg, 152.40 cm) iw ED Course: 08:47 Patient arrived in ED. mr 08:47 Laron Brito MD is Private Physician. mr 08:59 Triage completed. iw 08:59 Arm band placed on. iw 09:03 Cristobal Workman NP is PHCP. pm1 09:03 Umer Stuart MD is Attending Physician. pm1 09:42 Knee Left 3 View XRAY In Process Unspecified. EDMS 09:46 Jerry Farooq RN is Primary Nurse. em 09:54 Primary Nurse role handed off by Jerry Farooq RN ca1 09:54 Fiona Lopes, OWEN is Primary Nurse. ca1 09:55 Patient has correct armband on for positive identification. Bed in low position. Call ca1 light in reach. Side rails up X 1. Pulse ox on. NIBP on. 09:55 No provider procedures requiring assistance completed. Patient did not have IV access ca1 during this emergency room visit. 10:17 Alexis wrap to left knee. ca1 Administered Medications: No medications were administered Outcome: 10:11 Discharge ordered by . pm1 10:15 Discharged to home via wheelchair, with family. ca1 10:15 Condition: stable ca1 10:15 Discharge instructions given to patient, family, Instructed on discharge instructions, follow up and referral plans. Demonstrated understanding of instructions, follow-up care. 10:29 Patient left the ED. ca1 Signatures: Dispatcher [employer] SABINO RuanoKaye OseasJerry, RN RN Heydi Mandel RN RN iw Marinas, Patrick, DIRECTOR DIGITAL COMMUNICATIONS DIRECTOR DIGITAL COMMUNICATIONS pm1 Fiona Lopes RN RN ca1
--- NOTE | 2019-11-22 10:35 | RAD REPORT ---
EXAM DESCRIPTION: RAD - Knee Left 3 View - 11/22/2019 9:42 am CLINICAL HISTORY: PAIN Fall, pain COMPARISON: No comparisons FINDINGS: No acute fracture or dislocation seen. No joint effusion evident.
[2019-11-22 10:42] VITALS: TEMP 97; O2SAT 100
[2019-11-22 10:43] VITALS: BP 110/82
== END 2019-11-22 10:29 | disposition home or self-care (01) ==
LOC: ER 08:41
DX: S80.02XA Contusion of left knee, initial encounter (principal); W01.0XXA Fall on same level from slipping, tripping and stumbling without subsequent striking against object, initial encounter; Y93.9 Activity, unspecified; Y92.018 Other place in single-family (private) house as the place of occurrence of the external cause
CPT/HCPCS: 99283